=== PATIENT | female | born 2000 | race Caucasian/White ===

== ENCOUNTER 2024-08-24 11:29 | Emergency (ER) | payer OTHER, SELFPAY ==
[2024-08-24 11:48] VITALS: BP 143/76; PULSE 84; RESP 18; TEMP 36.4; O2SAT 100
--- NOTE | 2024-08-24 12:02 | ED.GENADULT ---
HPI - General Adult General Chief complaint: Skin/Abscess/Foreign Body Stated complaint: cellulitus Time Seen by Provider: 08/24/24 12:02 Source: patient Mode of arrival: ambulatory Limitations: no limitations History of Present Illness HPI narrative: 24-year-old female patient presents to the [facility] with complaints of a wound to the right lower leg for the past 4 days. Patient states that started out as ingrown hair and the swelling has gotten worse, warm to the touch today in the shower the scab came off and there was some yellow pus present. Denies any fevers, body aches or chills. Related Data Allergies Allergy/AdvReac Type Severity Reaction Status Date / Time cefdinir Allergy Rash Verified 08/24/24 11:51 Penicillins Allergy Rash Verified 08/24/24 11:51 Review of Systems Review of Systems: CONSTITUTIONAL: Denies fever, chills, or sweats. EYES: Denies visual changes, redness, or discharge. ENT: Denies rhinorrhea, congestion, sore throat, or otalgia. CARDIOVASCULAR: Denies chest pain, palpitations, or edema. RESPIRATORY: Denies cough or dyspnea. GASTROINTESTINAL: Denies abdominal pain, nausea, vomiting, or diarrhea. GENITOURINARY: Denies dysuria or hematuria. SKIN: Denies rash or itching. Positive wound to right lower leg x4 days MUSCULOSKELETAL: Denies back pain, joint pain, or myalgia. NEUROLOGIC: Denies headache, numbness, or weakness. PSYCHIATRIC: Denies anxiety or depression. [facility] Past Medical History Medical History (Updated 08/24/24 @ 12:12 by ANGELLA Conner) No significant past medical history Comments At the time of my signature I agree with nursing past medical history, surgical, social, and family history. There is no relevant family history pertinent to the presenting complaint. Exam Narrative: GENERAL: Well-appearing, well-nourished, and in no acute distress. HEAD: Normocephalic, atraumatic. EYES: PERRLA and EOMI. ENT: Nares clear, no rhinorrhea or epistaxis. Mucous membranes moist. NECK: Supple. No lymphadenopathy CHEST: Clear to auscultation. No respiratory distress. HEART: Regular rate and rhythm. No murmur heard. Normal peripheral pulses. ABDOMEN: Soft, nontender, nondistended, normal active bowel sounds. EXTREMITIES: Normal range of motion. No edema. SKIN: Warm, dry, no rash. patient has approximately 3.5 x 4 cm round erythemic area to the posterior right lower extremity with a scabbed area in the middle. It is warm to the touch no active draining at this time. NEURO: No focal deficits. Alert and oriented x3. Course Course Level of Care: Express Care Visit Vital Signs Vital signs: Vital Signs Temperature 36.4 C 08/24/24 11:48 Pulse Rate 84 08/24/24 11:48 Respiratory Rate 18 08/24/24 11:48 Blood Pressure 143/76 H 08/24/24 11:48 Pulse Oximetry 100 08/24/24 11:48 Oxygen Delivery Room Air 08/24/24 11:48 Temperature 36.4 C 08/24/24 11:48 Pulse Rate 84 08/24/24 11:48 Respiratory Rate 18 08/24/24 11:48 Blood Pressure 143/76 H 08/24/24 11:48 Pulse Oximetry 100 08/24/24 11:48 Oxygen Delivery Room Air 08/24/24 11:48 Vital signs reviewed. The patient has been informed that they may have pre-hypertension or Hypertension based on a BP reading in the department. I recommend that the patient call the primary care provider listed on their discharge instructions or a physician of their choice this week to arrange follow up for further evaluation of possible pre-hypertension or Hypertension Medical Decision Making MDM Narrative Medical decision making narrative: Discussed with patient we will discharge her home with oral antibiotics and a topical ointment. Patient may use warm compresses to help with pain as well as take [id number] Tylenol and ibuprofen. Patient verbalized understanding denies any other questions or concerns at this time. Differential Diagnosis Differential Diagnosis: Differential diagnosis: Abscess, cellulitis, hidradenitis, laceration, puncture wound. Vital Signs Vital Signs: Vital Signs Temperature 36.4 C 08/24/24 11:48 Pulse Rate 84 08/24/24 11:48 Respiratory Rate 18 08/24/24 11:48 Blood Pressure 143/76 H 08/24/24 11:48 Pulse Oximetry 100 08/24/24 11:48 Oxygen Delivery Room Air 08/24/24 11:48 Temperature 36.4 C 08/24/24 11:48 Pulse Rate 84 08/24/24 11:48 Respiratory Rate 18 08/24/24 11:48 Blood Pressure 143/76 H 08/24/24 11:48 Pulse Oximetry 100 08/24/24 11:48 Oxygen Delivery Room Air 08/24/24 11:48 Critical Care Time Critical Care Time Critical Care Time: No Discharge Plan Discharge Clinical Impression: Cellulitis of leg without foot, right Patient Disposition: Home, Self-Care Condition: Stable Instructions: Antibiotic Form, Cellulitis (ED) Additional Instructions: Take the prescribed antibiotic medicine you are given as directed until it is gone. Take it even if you feel better. It treats the infection and stops it from returning. Not taking all the medicine can make future infections hard to treat. Keep the infected area clean. When possible, raise the infected area above the level of your heart. This helps keep swelling down. May take Tylenol ibuprofen as needed for pain Take your temperature once a day for a week to monitor for fevers. If you do spike a fever please call your doctor right away. Wash your hands often to prevent spreading the infection. In the future, wash your hands before and after you touch cuts, scratches, or bandages. This will help prevent infection. Please call your doctor today and be scheduled for follow-up appointments in regards to being evaluated for vascular disease. When to call your healthcare provider Call your healthcare provider immediately if you have any of the following: Difficulty or pain when moving the joints above or below the infected area Discharge or pus draining from the area Fever of 100.4?F (38?C) or higher, or as directed by your healthcare provider Pain that gets worse in or around the infected Redness that gets worse in or around the infected area, particularly if the area of redness expands to a wider area Shaking chills Swelling of the infected area Vomiting Prescriptions: New clindamycin HCl 300 mg capsule 300 mg PO TID 7 Days Qty: 21 0RF clindamycin HCl 150 mg capsule 150 mg PO TID 7 Days Qty: 21 0RF mupirocin 2 % ointment 1 applic topical BID Qty: 22 0RF Follow-up/Referrals: UNKNOWN,DOCTOR [Primary Care Provider] - Time of Disposition: 12:11
== END 2024-08-24 12:18 | disposition home or self-care (01) ==
PROVIDERS: Emergency Provider Nurse Practitioner Family
DX: L03.115 Cellulitis of right lower limb (principal)
CPT/HCPCS: 99213; G0463